=== PATIENT | male | born 2000 | race African-American/Black ===

== ENCOUNTER 2020-08-26 17:34 | Emergency (ER) | payer OTHER ==
[2020-08-26 17:42] VITALS: BP 130/82; PULSE 68; TEMP 98.9; BMI 23.1
== END 2020-08-26 18:28 | disposition home or self-care (01) ==
LOC: JERFT 17:34
DX: S20.211A Contusion of right front wall of thorax, initial encounter (principal)
CPT/HCPCS: 71111-TC-FY; 99283-25